=== PATIENT | female | born 1930 | race Caucasian/White ===

== ENCOUNTER 2017-11-21 00:48 | Inpatient (IN) | payer OTHER ==
[2017-11-21] MEDS ORDERED: IPRATROPIUM BROM 0.5MG/2.5ML ONE (01:35)
[2017-11-21] MEDS ORDERED: FUROSEMIDE 40 MG/4 ML VIAL ONE (01:35)
[2017-11-21] MEDS ORDERED: ALBUTEROL 2.5 MG/3 ML NEB SOL ONE (01:35)
[2017-11-21 01:43] LABS: Arterial Blood Carboxyhemoglob 1.4 % (0-1.5); Blood Gas Oxyhemoglobin 94.7 % (94-97); Blood O2 Saturation 96.3 % (92-98.5)
[2017-11-21 02:20] LABS: Absolute Lymphocytes (CBC) 1.2 K/uL (0.7-4.9); Absolute Monocytes 0.8 K/uL (0.1-1.3); Absolute Neutrophil 5.1 K/uL (1.8-8.0); Basophils % 1.3 % (0-1.3); Eosinophils % 6.7 % (0-4.4); Hematocrit 38.3 % (36.0-45.0); Lymphocytes % 15.7 % (15.3-44.8); MCH 26.5 pg (27.0-35.0); MCV 84.1 fL (80-100); MPV 10.6 fL (7.6-11.3); Monocytes % 9.9 % (3.3-12.3); RBC Red Blood Cell Count 4.55 M/uL (3.86-4.86)
[2017-11-21 02:25] LABS: Protime INR 1.18
[2017-11-21 02:44] LABS: CKMB Creatine Kinase MB 3.9 ng/ml (0.3-4.0); Potassium 4.7 mEq/L (3.6-5.0)
[2017-11-21 02:51] LABS: Bilirubin Direct 0.4 mg/dL (0-0.2); Bilirubin Total 0.9 mg/dL (0.3-1.2); Magnesium 2.1 mg/dL (1.8-2.5); Protein, Total 7.9 g/dL (6.0-8.3)
--- NOTE | 2017-11-21 03:12 | EDPHYS ---
Physician Documentation [facility] Name: Anastacia Zarate Age: 87 yrs Sex: Female : 1930 Arrival Date: 11/21/2017 Time: 00:49 Bed 3 Private MD: ED Physician Doe Thompson HPI: 11/21 01:30 This 87 yrs old Female presents to ER via Wheelchair with complaints of pkl Shortness Of Breath. 01:30 The patient has shortness of breath at rest. Onset: The symptoms/episode began/occurred pkl today. Associated signs and symptoms: Pertinent positives: pedal edema. The patient has experienced similar episodes in the past, a few times. Historical: - Allergies: 01:10 Talwin; ea - Home Meds: 01:10 furosemide 20 mg Oral tab 1 tab once daily [Active]; Premarin 1.25 mg Oral tab 1 tab ea once daily [Active]; Synthroid 100 mcg Oral tab 1 tab once daily [Active]; Toprol XL 50 mg Oral Tb24 1 tab once daily [Active]; - PMHx: 01:10 Hypertension; lymphedema; Migraines; ea - PSHx: 01:10 ; Appendectomy; Hysterectomy; Tonsillectomy; cyst and tumor removal from LORRAINE ea breast; LORRAINE masectomy; - Immunization history:: Adult Immunizations up to date. - Social history:: Smoking status: Patient/guardian denies using tobacco. ROS: 01:30 Eyes: Negative for injury, pain, redness, and discharge, ENT: Negative for injury, pkl pain, and discharge, Neck: Negative for injury, pain, and swelling, Cardiovascular: Negative for chest pain, palpitations, and edema. 01:30 Respiratory: Positive for shortness of breath. 01:30 Abdomen/GI: Negative for abdominal pain, nausea, vomiting, and diarrhea. 01:30 Back: Negative for acute changes. 01:30 : Negative for urinary symptoms. 01:30 MS/extremity: Positive for swelling, of the both legs. 01:30 Skin: Negative for rash. 01:30 Neuro: Negative for altered mental status. Exam: 01:30 Head/Face: Normocephalic, atraumatic. Eyes: Pupils equal round and reactive to light, pkl extra-ocular motions intact. Lids and lashes normal. Conjunctiva and sclera are non-icteric and not injected. Cornea within normal limits. Periorbital areas with no swelling, redness, or edema. ENT: Nares patent. No nasal discharge, no septal abnormalities noted. Tympanic membranes are normal and external auditory canals are clear. Oropharynx with no redness, swelling, or masses, exudates, or evidence of obstruction, uvula midline. Mucous membranes moist. Neck: Trachea midline, no thyromegaly or masses palpated, and no cervical lymphadenopathy. Supple, full range of motion without nuchal rigidity, or vertebral point tenderness. No Meningismus. Chest/axilla: Normal chest wall appearance and motion. Nontender with no deformity. No lesions are appreciated. Cardiovascular: Regular rate and rhythm with a normal S1 and S2. No gallops, murmurs, or rubs. Normal PMI, no JVD. No pulse deficits. 01:30 Respiratory: mild respiratory distress is noted, Respirations: labored breathing, that is mild, Breath sounds: rales, that are mild, are scattered. 01:30 Abdomen/GI: Bowel sounds: normal, Palpation: abdomen is soft and non-tender, in all pkl quadrants. 01:30 Back: Exam negative for acute changes. 01:30 : Exam negative for acute changes. 01:30 Musculoskeletal/extremity: Extremities: grossly normal except: noted in the both legs: swelling. 01:30 Skin: Exam negative for rash. 01:30 Neuro: Orientation: appropriate for stated age, Mentation: is normal, Cranial nerves: grossly normal, Motor: is normal. Vital Signs: 00:58 BP 158 / 91; Pulse 129; Resp 26; Temp 97.1(A); Pulse Ox 89% on R/A; Weight 45.36 kg; ea Height 5 ft. 2 in. (157.48 cm); Pain 0/10; 01:33 BP 169 / 103; Pulse 89; Resp 24; Pulse Ox 97% on 2 lpm NC; aa1 04:06 BP 175 / 93; Pulse 91; Resp 22 S; Pulse Ox 100% on 2 lpm NC; ea 04:22 BP 168 / 86; Pulse 90; Resp 20; Temp 97.6(O); Pulse Ox 100% on 2 lpm NC; ea 00:58 Body Mass Index 18.29 (45.36 kg, 157.48 cm) ea 00:58 pt placed on O2 at 2 L per NC, pt tolerated well, O2 at 96% RA ea MDM: 01:07 Patient medically screened. pkl 03:09 Data reviewed: vital signs, nurses notes, lab test result(s), EKG, radiologic studies, pkl plain films. 11/21 01:28 Order name: Basic Metabolic Panel pkl 11/21 01:28 Order name: BNP pkl 11/21 01:28 Order name: CBC with Diff pk 11/21 01:28 Order name: Ckmb pk 11/21 01:28 Order name: CPK pk 11/21 01:28 Order name: LFT's pk 11/21 01:28 Order name: Magnesium pk 11/21 01:28 Order name: PT-INR pk 11/21 01:28 Order name: Ptt, Activated; Complete Time: 02:40 pkl 11/21 01:28 Order name: Troponin (emerg Dept Use Only); Complete Time: 02:47 pkl 11/21 01:29 Order name: Basic Metabolic Panel; Complete Time: 02:51 EDMS 11/21 01:29 Order name: BNP B-Type Natriuretic Peptide; Complete Time: 02:47 EDMS 11/21 01:29 Order name: CBC with Automated Diff; Complete Time: 02:26 EDMS 11/21 01:29 Order name: CKMB Creatine Kinase MB; Complete Time: 02:51 EDMS 11/21 01:28 Order name: XRAY Chest (1 view) pk 11/21 01:28 Order name: EKG; Complete Time: 01:29 pkl 11/21 01:28 Order name: Cardiac monitoring; Complete Time: 01:33 pkl 11/21 01:28 Order name: EKG - Nurse/Tech; Complete Time: 01:33 pkl 11/21 01:28 Order name: IV Saline Lock; Complete Time: 01:33 pkl 11/21 01:28 Order name: Labs collected and sent; Complete Time: 02:01 pkl 11/21 01:28 Order name: O2 Per Protocol; Complete Time: 01:33 pkl 11/21 01:29 Order name: Creatine Phosphokinase; Complete Time: 02:51 EDMS 11/21 01:29 Order name: Liver (Hepatic) Function; Complete Time: 02:51 EDMS 11/21 01:29 Order name: Magnesium; Complete Time: 02:51 EDMS 11/21 01:29 Order name: Protime (+INR); Complete Time: 02:40 EDMS 11/21 01:29 Order name: ABG; Complete Time: 01:59 pkl 11/21 01:28 Order name: O2 Sat Monitoring; Complete Time: 01:32 pkl Administered Medications: 01:45 Drug: Lasix 40 mg Route: IVP; Site: right forearm; aa1 02:30 Follow up: Response: No adverse reaction ea 01:45 Drug: Albuterol - atroVENT (3:1) (2.5 mg - 0.5 mg) 3 ml Route: Nebulizer; aa1 02:21 Follow up: Response: No adverse reaction ea 02:21 Follow up: Response: Marked relief of symptoms ea 04:01 CANCELLED (Inappropriate at this time): SOLU-Medrol 125 mg IVP once ea 04:01 CANCELLED (Inappropriate at this time): fentaNYL (PF) 50 mcg IVP once ea Disposition: 11/21/17 03:10 Hospitalization ordered by Yossi Deng for Inpatient Admission. Preliminary diagnosis is Acute dyspnea. Congestive heart failure. - Bed requested for Telemetry/MedSurg (Inpatient). - Status is Inpatient Admission. ea - Condition is Stable. - Problem is new. - Symptoms have improved. UTI on Admission? No Signatures: Dispatcher [employer] Joann Strickland RN RN aa1 Doe Thompson MD MD pkl Garcia, Cindy, RN RN cg Antunez, Elena, RN RN ea Corrections: (The following items were deleted from the chart) 04: 04:00 SOLU-Medrol 125 mg IVP once ordered. ea ea 04: 04:00 fentaNYL (PF) 50 mcg IVP once ordered. ea ea
--- NOTE | 2017-11-21 03:12 | ER ---
Nurse's Notes [facility] Name: Anastacia Zarate Age: 87 yrs Sex: Female : 1930 Arrival Date: 11/21/2017 Time: 00:49 Bed 3 Private MD: Diagnosis: Acute dyspnea. Congestive heart failure Presentation: 11/21 00:58 Presenting complaint: Daughter states mother started having difficulty breathing ea tonight but got worse about 30 minutes ago, daughter states " she has been hospitalized for this before, she has fluid build up and then it causes her difficulty breathing". Transition of care: patient was not received from another setting of care. Onset of symptoms was November 21, 2017. Initial Sepsis Screen: Does the patient meet any 2 criteria? RR > 20 per min. HR > 90 bpm. Yes Does the patient have a suspected source of infection? No. Patient's initial sepsis screen is negative. Care prior to arrival: None. 00:58 Method Of Arrival: Wheelchair ea 00:58 Acuity: YAMILEX 3 ea Triage Assessment: 00:58 General: Appears uncomfortable, Behavior is appropriate for age, restless. Pain: Denies ea pain. EENT: No signs and/or symptoms were reported regarding the EENT system. Neuro: Level of Consciousness is awake, alert, obeys commands, Oriented to person, place, time, situation. Cardiovascular: Heart tones S1 S2 present Patient's skin is warm and dry. Cardiovascular: JVD is present bilaterally. Respiratory: Reports shortness of breath since this morning Airway is patent Respiratory effort is even, labored, Respiratory pattern is symmetrical, tachypnea Breath sounds with crackles bilaterally. Onset: The symptoms/episode began/occurred today, the patient has mild shortness of breath. GI: Abdomen is non-distended. GI:. Derm: Skin temperature is warm lorraine lower extremity 3+ pitting edema. Historical: - Allergies: 01:10 Talwin; ea - Home Meds: 01:10 furosemide 20 mg Oral tab 1 tab once daily [Active]; Premarin 1.25 mg Oral tab 1 tab ea once daily [Active]; Synthroid 100 mcg Oral tab 1 tab once daily [Active]; Toprol XL 50 mg Oral Tb24 1 tab once daily [Active]; - PMHx: 01:10 Hypertension; lymphedema; Migraines; ea - PSHx: 01:10 ; Appendectomy; Hysterectomy; Tonsillectomy; cyst and tumor removal from LORRAINE ea breast; LORRAINE masectomy; - Immunization history:: Adult Immunizations up to date. - Social history:: Smoking status: Patient/guardian denies using tobacco. Screenin:16 Abuse screen: Denies threats or abuse. Nutritional screening: No deficits noted. ea Tuberculosis screening: No symptoms or risk factors identified. Fall Risk IV access (20 points). Assessment: 01:18 Reassessment: see triage assessment. ea 02:08 Reassessment: Patient and/or family updated on plan of care and expected duration. Pain ea level reassessed. RT at bedside. Pt placed on breathing treatment, tolerating well. 03:55 Reassessment: Patient and/or family updated on plan of care and expected duration. Pain ea level reassessed. Daughter remains at bedside, respirations even and unlabored, chest expansions even and symmetrical. Pt on O2 at 2 L per NC. Pt tolerating well. Patient states symptoms have improved. 04:15 Reassessment: Report called to receiving nurse. Reassessment: Patient and/or family ea updated on plan of care and expected duration. Pain level reassessed. Patient is alert, oriented x 3, equal unlabored respirations, skin warm/dry/pink. Patient states symptoms have improved. Vital Signs: 00:58 BP 158 / 91; Pulse 129; Resp 26; Temp 97.1(A); Pulse Ox 89% on R/A; Weight 45.36 kg; ea Height 5 ft. 2 in. (157.48 cm); Pain 0/10; 01:33 BP 169 / 103; Pulse 89; Resp 24; Pulse Ox 97% on 2 lpm NC; aa1 04:06 BP 175 / 93; Pulse 91; Resp 22 S; Pulse Ox 100% on 2 lpm NC; ea 04:22 BP 168 / 86; Pulse 90; Resp 20; Temp 97.6(O); Pulse Ox 100% on 2 lpm NC; ea 00:58 Body Mass Index 18.29 (45.36 kg, 157.48 cm) ea 00:58 pt placed on O2 at 2 L per NC, pt tolerated well, O2 at 96% RA ea ED Course: 00:49 Patient arrived in ED. ds1 00:58 Patient has correct armband on for positive identification. Bed in low position. Call ea light in reach. Side rails up X2. 01:00 Arm band placed on left wrist. Patient placed in an exam room, on a stretcher, on ea oxygen, on lunchroom monitor, on pulse oximetry. 01:02 Arin John RN is Primary Nurse. ea 01:07 Doe Thompson MD is Attending Physician. pkl 01:09 Triage completed. ea 01:19 EKG done, by ED staff, reviewed by Doe Thompson MD. Inserted saline lock: 22 gauge in right aa1 forearm, using aseptic technique. 01:55 X-ray completed. Portable x-ray completed in exam room. Patient tolerated procedure kw well. 01:56 XRAY Chest (1 view) In Process Unspecified. EDMS 03:10 Yossi Deng MD is Hospitalizing Provider. pkl 03:29 No provider procedures requiring assistance completed. ea 04:25 IV discontinued, intact, bleeding controlled, No redness/swelling at site. Pressure ea dressing applied. Administered Medications: 01:45 Drug: Lasix 40 mg Route: IVP; Site: right forearm; aa1 02:30 Follow up: Response: No adverse reaction ea 01:45 Drug: Albuterol - atroVENT (3:1) (2.5 mg - 0.5 mg) 3 ml Route: Nebulizer; aa1 02:21 Follow up: Response: No adverse reaction ea 02:21 Follow up: Response: Marked relief of symptoms ea 04:01 CANCELLED (Inappropriate at this time): SOLU-Medrol 125 mg IVP once ea 04:01 CANCELLED (Inappropriate at this time): fentaNYL (PF) 50 mcg IVP once ea Outcome: 03:10 Decision to Hospitalize by Provider. pkl 04:18 Instructed on the need for admit. ea 04:25 Admitted to Med/surg accompanied by tech, via stretcher, room 424, with chart, Report ea called to Receiving nurse on fourth floor. 04:25 Condition: stable 04:26 Patient left the ED. ea Signatures: Dispatcher [employer] EDMS Joann Pisano, RN RN aa1 Doe Thompson MD MD pkSilvana Coombs 1 Hayley Lim kw Arin John RN RN ea
[2017-11-21] MEDS ORDERED: ACETAMINOPHEN 500 MG TAB PO PRN (03:20)
[2017-11-21] MEDS ORDERED: IPRATROPIUM BROM 0.5MG/2.5ML NEB PRN (03:20)
[2017-11-21] MEDS ORDERED: ALBUTEROL 2.5 MG/3 ML NEB SOL NEB PRN (03:20)
[2017-11-21] MEDS ORDERED: ONDANSETRON 4 MG/2 ML VIAL IV PRN (03:20)
--- NOTE | 2017-11-21 06:17 | RAD REPORT ---
EXAM DESCRIPTION: RAD - Chest Single View - 11/21/2017 1:56 am CLINICAL HISTORY: Difficulty breathing, lymphedema COMPARISON: September 16 TECHNIQUE: AP portable chest image was obtained 0148 hours . FINDINGS: Lung volumes are low. Chronic interstitial lung disease is accentuated by the shallow insp iration. Right pleural effusion is present increased slightly from the comparison. Minimal left pleur al effusion is suspected. Bilateral lung base opacification is present right greater than left. This is primarily atelectasis and fibrosis. Patient likely has a component of interstitial edema or infilt rate. Heart size is normal. Trachea is midline. Densely calcified breast implant capsules overlie the lower chest and upper abdomen. No pneumothorax. No gross bony abnormality seen. No acute aortic find ings suspected. IMPRESSION: Interstitial edema or infiltrate superimposed on chronic fibrotic change. Slight increase in right lung base pleural effusion. No cardiomegaly or significant vascular engorgement.
[2017-11-21 06:36] VITALS: BMI 18.3
--- NOTE | 2017-11-21 06:53 | EKG ---
Test Date: 2017-11-21 Test Time: 01:08:58 Hr Operations Advisor: LANDY MEASUREMENT RESULTS: Intervals: Rate: 89 ND: QRSD: 70 QT: 356 QTc: 433 [place]: P: ND: QRS: 43 T: -1 INTERPRETIVE STATEMENTS: Atrial fibrillation Nonspecific ST and T wave abnormality Abnormal ECG Compared to ECG 09/16/2017 17:44:52 Ventricular premature complex(es) no longer present Electronically Signed On 11-21-17 06:53:21 CDT by Avelino Agustin
[2017-11-21] MEDS: FUROSEMIDE 20 MG/ 2ML VIAL IV SCH ×2 (08:23→18:22)
[2017-11-21] MEDS ORDERED: ENOXAPARIN 40 MG/0.4 ML SQ SCH (09:00)
[2017-11-21] MEDS: METOPROLOL XL 50 MG TAB PO SCH (09:47)
[2017-11-21] MEDS ORDERED: LISINOPRIL 10 MG TAB PO ONE (12:17)
--- NOTE | 2017-11-21 15:01 | ECHO ---
HEIGHT: 5 ft 2 in WEIGHT: 100 lb 0 oz DATE OF STUDY: 11/21/[address]: Yossi Deng MD 2-DIMENSIONAL: YES M.MODE: YES DOPPLER: YES COLOR FLOW: YES TDS: PORTABLE: DEFINITY: BUBBLE STUDY: DIAGNOSIS: CONGESTIVE HEART FAILURE CARDIAC HISTORY: CATHERIZATION: NO SURGERY: NO PROSTHETIC VALVE: NO PACEMAKER: NO MEASUREMENTS (cm) DIASTOLIC (NORMALS) SYSTOLIC (NORMALS) IVSd 0.9 (0.6-1.2) LA Diam 3.1 (1.9-4.0) LVEF 60-65% LVIDd 3.7 (3.5-5.7) LVIDs 2.8 (2.0-3.5) %FS % LVPWd 1.0 (0.6-1.2) Ao Diam 3.3 (2.0-3.7) 2 DIMENSIONAL ASSESSMENT: RIGHT ATRIUM: DILATED LEFT ATRIUM: NORMAL RIGHT VENTRICLE: DILATED LEFT VENTRICLE: NORMAL TRICUSPID VALVE: NORMAL MITRAL VALVE: NORMAL PULMONIC VALVE: NORMAL AORTIC VALVE: NORMAL PERICARDIAL EFFUSION: NONE AORTIC ROOT: NORMAL LEFT VENTRICULAR WALL MOTION: PARADOXICAL SEPTAL MOTION SUGGESTIVE OF RIGHT VENTRICULAR PRESSURE OVERLOAD. DOPPLER/COLOR FLOW: MILD AORTIC AND MITRAL REGURGITATION. MODERATE TRICUSPID REGURGITATION. SEVERE PULMONARY HYPERTENSION. ESTIMATED RIGHT VENTRICULAR SYSTOLIC PRESSURE >80 mmHg. COMMENTS: NORMAL LEFT VENTRICULAR EJECTION FRACTION WITH PARADOXICAL SEPTAL MOTION. DILATED RIGHT ATRIUM AND RIGHT VENTRICLE. MILD AORTIC AND MITRAL REGURGITATION. ATRIAL FIBRILLATION. MODERATE TRICUSPID REGURGITATION. SEVERE PULMONARY HYPERTENSION. RIGHT PLEURAL EFFUSION. TECHNOLOGIST: BONNIE PANDEY
[2017-11-21 16:55] LABS: Thyroid Stimulating Hormone 8.22 uIU/mL (0.34-5.60)
--- NOTE | 2017-11-21 23:35 | HP ---
Date of Admission: 11/21/2017 History Of Present Illness: An 87-year-old female with history of systolic congestive heart failure and atrial fibrillation came to emergency room complaining of increased shortness of breath gradually over the past week or so. She noticed also that her legs are getting swollen on both sides. She wa s found to have exacerbation of systolic congestive heart failure. She was admitted for that. The p atient had no chest pain, no nausea, or no vomiting. Voiced no other complaints. Review of Systems: Respiratory: As above. Cardiovascular: No chest pain. No palpitation. No other complaints. Gastrointestinal: No complaints. Genitourinary: No complaints. Skeletomuscular: Chronic osteoarthritis, multiple joints, for which the patient had difficulty in am bulation. Neurological: No complaint. Past Medical History: 1.Chronic atrial fibrillation. 2.Systolic congestive heart failure. 3.Hypothyroidism. 4.History of migraines, no recent episodes. 5.Chronic bilateral lymphedema. 6.The patient has had bilateral mastectomy, appendectomy, hysterectomy, and tonsillectomy. Social History: No smoking, alcohol, or drug abuse history. Family History: Noncontributory. Medications: Include potassium chloride 10 mEq p.o. daily, Demadex 20 mg p.o. daily, levothyroxine 0 .1 mg p.o. daily, metoprolol 50 mg p.o. daily, and Premarin 1.25 mg p.o. daily. Allergies: PENTAZOCINE. Physical Examination: Vital Signs: Blood pressure 185/94, pulse 99, and temperature 97.1. Heart: Irregular rate and rhythm. Chest: Mild bilateral crackles and rales. Abdomen: Soft, nontender. No hepatosplenomegaly. Bowel sounds are normoactive. Extremities: Chronic lymphedema bilateral with trace pitting edema bilateral also. Neurological: Alert, oriented, and nonfocal. Grossly intact. Diagnostic Studies: Chest x-ray showed interstitial edema with chronic fibrotic changes, mild right pleural effusion. Electrocardiogram, atrial fibrillation, nonspecific ST-T wave abnormality. Laboratory Data: CBC noted. ABGs on 2 L nasal prong, pH 7.4, pCO2 42.8, PO2 87.4, and saturation 96 .3. Chemistry: BUN 28, creatinine 0.95. Troponin less than 0.03. BNP was 2827. Assessment And Plan: Acute systolic congestive heart failure on top of chronic. The patient is bein g admitted. Put her on IV Lasix 20 mg IV b.i.d. Continue home medications. Monitor her electrolyte s and supplement as needed. The patient has been put also on breathing treatments. We will ask [facility] for discharge planning and also have put the patient on Lovenox 30 mg subcutaneous daily. The patient with chronic atrial fibrillation. She is not a candidate for chronic anticoagulation b ecause of her increased risk of falling and her compliance. Go ahead and check her TSH. We will ask [employer] as mentioned for discharge planning. Look orders for details. LOPEZ/MORTEZA Voice ID: [id number]
[2017-11-22] MEDS: LEVOTHYROXINE SOD 0.1 MG TAB PO SCH (05:09)
[2017-11-22 05:14] LABS: Absolute Lymphocytes (CBC) 0.7 K/uL (0.7-4.9); Absolute Monocytes 0.6 K/uL (0.1-1.3); Absolute Neutrophil 4.6 K/uL (1.8-8.0); Basophils % 0.9 % (0-1.3); Eosinophils % 4.4 % (0-4.4); MCH 26.1 pg (27.0-35.0); MCV 82.5 fL (80-100); MPV 10.1 fL (7.6-11.3); Monocytes % 9.6 % (3.3-12.3); RBC Red Blood Cell Count 3.88 M/uL (3.86-4.86)
[2017-11-22 05:49] LABS: Potassium 3.5 mEq/L (3.6-5.0)
[2017-11-22] MEDS: METOPROLOL XL 50 MG TAB PO SCH (08:55)
[2017-11-22] MEDS: ENOXAPARIN 30 MG/0.3 ML SQ SCH (08:56)
[2017-11-22] MEDS: FUROSEMIDE 20 MG/ 2ML VIAL IV SCH ×2 (08:57→16:10)
[2017-11-22] MEDS ORDERED: POTASSIUM CL SA 10 MEQ TAB PO ONE (09:00)
--- NOTE | 2017-11-22 16:18 | PN ---
Subjective: The patient is feeling better today. She is not short of breath. Has no new complaint. Objective: Vital Signs: Blood pressure 122/70, pulse 80, and temperature 97. Heart: Regular rate and rhythm. Chest: Clear to auscultation. Abdomen: Soft, benign. Neurologic: Alert, oriented. Grossly intact Extremities: No pitting edema. Diagnostic Data: Cardiac echo showed ejection fraction of left ventricle 60-65%. However, she had s evere pulmonary hypertension. Laboratory Data: Hemoglobin 10.1, hematocrit 32, and platelets 130. Chemistry; BNP got down to be 1 891. TSH is high at 8.32. Assessment And Plan: 1.Shortness of breath, resolved. I think it was also from severe pulmonary hypertension causing the patient's edema. We will continue IV Lasix 40 daily and we will switch her back to p.o. Lasix upon discharge. 2.We will increase her dose of thyroid hormone, levothyroxine because of her elevated TSH. 3.Form [employer] Forms note noted. The patient is refusing senior care. She would like to go ahead and arrange for her caregiver. At this time, we will expect to discharge the patient in the morning. H ad potassium today 3.5. She is on electrolyte protocol that will be supplemented. MFS/MODL Voice ID: [id number] Report ID: [id number]
[2017-11-22] MEDS: ENSURE ENLIVE 237 ML CAN PO SCH (20:20)
[2017-11-23 05:32] LABS: Potassium 3.2 mEq/L (3.6-5.0)
[2017-11-23] MEDS ORDERED: POTASSIUM CL SA 10 MEQ TAB PO ONE (05:55)
[2017-11-23] MEDS: LEVOTHYROXINE SOD 0.1 MG TAB PO SCH (06:04)
[2017-11-23] MEDS: FUROSEMIDE 20 MG/ 2ML VIAL IV SCH (09:37)
[2017-11-23] MEDS: METOPROLOL XL 50 MG TAB PO SCH (09:38)
[2017-11-23] MEDS: ENOXAPARIN 30 MG/0.3 ML SQ SCH (09:38)
[2017-11-23] MEDS: ENSURE ENLIVE 237 ML CAN PO SCH (09:39)
[2017-11-23 12:06] VITALS: O2SAT 95
[2017-11-23 12:08] VITALS: BP 141/63; TEMP 97.6
--- NOTE | 2018-03-01 15:52 | DS ---
Date of Discharge: 11/23/2017 History Of Present Illness: An 87-year-old female, who presented to the emergency room with acute sh ortness of breath and her evaluation was found. She has chronic systolic congestive heart failure wi th acute exacerbation and she was admitted for that. Past Medical History: As per admit note. Social History: As per admit note. Family History: As per admit note. Medications: As per admit note. Allergies: PER ADMIT NOTE. Physical Examination: As per admit note. Diagnostic Data: As per admit note. Hospital Course: The patient was admitted to the hospital. She was put on a low-salt diet and IV La six 20 mg b.i.d. We monitored her electrolytes, kept her on home medications for chronic medical ill nesses, and put her on Lovenox subcutaneous for prophylaxis of DVT. She also has chronic atrial fibr illation, but she was not on anticoagulation at home because of increased risk of falling. The patie nt gradually improved. Echocardiogram showed left ventricular ejection fraction of 60% to 65%. Her shortness of breath has resolved. I thought the patient's swelling and edema was secondary to severe pulmonary hypertension and was found by echo. We continued her Lasix p.o. We checked her TSH and w as elevated. We increased her levothyroxine medication. Credit Review Manager were consulted for discharg e planning. The patient refused detention placement at this time. We thought the patient is stab le to be discharged on oral Lasix. Continue home medications for chronic medical illnesses, and stay on low-salt diet. Follow up with me. Look discharge orders for details. LOPEZ/MORTEZA Voice ID: [id number] Report ID: [id number]
== END 2017-11-23 16:22 | DRG 293 ==
LOC: ER 00:48 → ERHOLD 03:10 → 4TH 03:50
PROVIDERS: ADMIT Internal Medicine; ATTEND Internal Medicine
DX: I50.23 Acute on chronic systolic (congestive) heart failure (principal); I27.20 Pulmonary hypertension, unspecified; I48.2 Chronic atrial fibrillation; E03.9 Hypothyroidism, unspecified; I89.0 Lymphedema, not elsewhere classified; Z90.13 Acquired absence of bilateral breasts and nipples; Z90.79 Acquired absence of other genital organ(s); Z90.49 Acquired absence of other specified parts of digestive tract; Z90.89 Acquired absence of other organs
CPT/HCPCS: 36415; 71045; 80048; 80076; 82550; 82553; 82805; 83735; 83880; 84132; 84439; 84443; 84484; 85025; 85610; 85730; 93005; 93306; 94640; 96374; 97163; 99285; J1650; J1940

== ENCOUNTER 2018-02-12 10:44 | Emergency (ER) | payer OTHER ==
--- NOTE | 2018-02-12 11:45 | RAD REPORT ---
EXAM DESCRIPTION: RAD - Tib Fib Right - 02/12/2018 11:36 am CLINICAL HISTORY: Leg pain and soft tissue swelling following trauma COMPARISON: None. FINDINGS: No fracture is identified. There is no dislocation or periosteal reaction noted. No acute or suspicious bony finding. Arterial calcifications are present. Contusion or hematoma changes are present in the distal lateral soft tissues. No air or foreign body. Patient has underlying osteopenia. IMPRESSION: Small hematoma or contusion changes in the distal lateral right leg. No air or foreign b aguilar. Osteopenia with no fracture or acute bone finding.
--- NOTE | 2018-02-12 11:48 | EDPHYS ---
Physician Documentation [facility] Name: Anastacia Zarate Age: 87 yrs Sex: Female : 1930 Arrival Date: 02/12/2018 Time: 10:48 Bed 20 Private MD: ED Physician James Graham HPI: 02/12 10:55 This 87 yrs old Female presents to ER via EMS with complaints of Fall Injury. snw 10:55 Details of fall: The patient fell from an upright position, while standing. Onset: The snw symptoms/episode began/occurred suddenly, just prior to arrival. Associated injuries: The patient sustained right easley, hematoma, painful injury, swelling. Severity of symptoms: At their worst the symptoms were moderate. The patient has not experienced similar symptoms in the past. The patient has been recently seen by a physician: recently seen for bilateral lower extremity edema. Pt states she is taking some medication "they won't tell me what it is" at night that makes her dizzy. Pt states she has taken the medication for the past two nights and knows it is making her nauseated and dizzy. States she got up today to go to the bathroom and fell striking right easley on her walker. Historical: - Allergies: 10:50 Talwin; aa5 10:50 Talwin; aa5 - Home Meds: 10:50 latanoprost ophthalmic ophthalmic [Active]; levothyroxine 125 mcg tab once daily aa5 [Active]; loratadine 10 mg oral tab 1 tab once daily [Active]; metoprolol succinate 50 mg oral Tb24 once daily [Active]; mirtazapine 15 mg Oral TbDL 1 tab once daily [Active]; Oxygen at 2 L NC [Active]; potassium chloride 20 mEq Oral TbTQ 2 times per day [Active]; Premarin 1.25 mg Oral tab once daily [Active]; torsemide 20 mg oral tab twice a day [Active]; loperamide 2 mg Oral tab four times a day for Diarrhea [Active]; - PMHx: 10:50 Hypertension; lymphedema; Migraines; CHF; Atrial Fib; Hypothyroidism; aa5 10:50 Hypertension; lymphedema; Migraines; Hypothyroidism; Atrial Fib; CHF; Breast Cancer; aa5 - PSHx: 10:50 ; Appendectomy; Hysterectomy; Tonsillectomy; cyst and tumor removal from LORRAINE aa5 breast; 10:50 ; Appendectomy; Hysterectomy; Tonsillectomy; cyst and tumor removal from LORRAINE aa5 breast; LORRAINE masectomy; - Immunization history:: Adult Immunizations up to date. - Social history:: Smoking status: Patient/guardian denies using tobacco. - Immunization history: Last tetanus immunization: unknown. - Ebola Screening: : No symptoms or risks identified at this time. ROS: 10:54 Constitutional: Negative for fever, chills, and weight loss, Eyes: Negative for injury, snw pain, redness, and discharge, ENT: Negative for injury, pain, and discharge, Neck: Negative for injury, pain, and swelling, Cardiovascular: Negative for chest pain, palpitations, and edema, Respiratory: Negative for shortness of breath, cough, wheezing, and pleuritic chest pain, Abdomen/GI: Negative for abdominal pain, nausea, vomiting, diarrhea, and constipation, Back: Negative for injury and pain, : Negative for injury, bleeding, discharge, and swelling, Skin: Negative for injury, rash, and discoloration, Neuro: Negative for headache, weakness, numbness, tingling, and seizure, Psych: Negative for depression, anxiety, suicide ideation, homicidal ideation, and hallucinations. 10:54 MS/extremity: Positive for injury or acute deformity, swelling, tenderness, of the right easley. Exam: 10:53 Constitutional: This is a well developed, well nourished patient who is awake, alert, snw and in no acute distress. Head/Face: Normocephalic, atraumatic. Eyes: Pupils equal round and reactive to light, extra-ocular motions intact. Lids and lashes normal. Conjunctiva and sclera are non-icteric and not injected. Cornea within normal limits. Periorbital areas with no swelling, redness, or edema. ENT: Nares patent. No nasal discharge, no septal abnormalities noted. Tympanic membranes are normal and external auditory canals are clear. Oropharynx with no redness, swelling, or masses, exudates, or evidence of obstruction, uvula midline. Mucous membranes moist. Neck: Trachea midline, no thyromegaly or masses palpated, and no cervical lymphadenopathy. Supple, full range of motion without nuchal rigidity, or vertebral point tenderness. No Meningismus. Chest/axilla: Normal chest wall appearance and motion. Nontender with no deformity. No lesions are appreciated. Cardiovascular: Regular rate and rhythm with a normal S1 and S2. No gallops, murmurs, or rubs. Normal PMI, no JVD. No pulse deficits. Respiratory: Lungs have equal breath sounds bilaterally, clear to auscultation and percussion. No rales, rhonchi or wheezes noted. No increased work of breathing, no retractions or nasal flaring. Abdomen/GI: Soft, non-tender, with normal bowel sounds. No distension or tympany. No guarding or rebound. No evidence of tenderness throughout. Back: No spinal tenderness. No costovertebral tenderness. Full range of motion. Skin: Warm, dry with normal turgor. Normal color with no rashes, no lesions, and no evidence of cellulitis. Neuro: Awake and alert, GCS 15, oriented to person, place, time, and situation. Cranial nerves II-XII grossly intact. Motor strength 5/5 in all extremities. Sensory grossly intact. Cerebellar exam normal. Normal gait. Psych: Awake, alert, with orientation to person, place and time. Behavior, mood, and affect are within normal limits. 10:53 Musculoskeletal/extremity: Extremities: grossly normal except: contusion, tenderness, large hematoma to right lower extremity, ROM: no acute changes, Circulation is intact in all extremities. Sensation intact. Vital Signs: 10:50 BP 124 / 64; Pulse 66; Resp 16 S; Temp 97.6(O); Pulse Ox 100% on R/A; Weight 40.37 kg aa5 (R); Pain 8/10; 11:45 BP 144 / 57; Pulse 70; Resp 16 S; Pulse Ox 98% on 2 lpm NC; Pain 5/10; aa5 12:45 BP 142 / 70; Pulse 74; Resp 16 S; Pulse Ox 99% on 2 lpm NC; Pain 5/10; aa5 Tammy Coma Score: 10:50 Eye Response: spontaneous(4). Verbal Response: oriented(5). Motor Response: obeys aa5 commands(6). Total: 15. 11:45 Eye Response: spontaneous(4). Verbal Response: oriented(5). Motor Response: obeys aa5 commands(6). Total: 15. 12:45 Eye Response: spontaneous(4). Verbal Response: oriented(5). Motor Response: obeys aa5 commands(6). Total: 15. Trauma Score (Adult): 10:50 Eye Response: spontaneous(1); Verbal Response: oriented(1); Motor Response: obeys aa5 commands(2); Systolic BP: > 89 mm Hg(4); Respiratory Rate: 10 to 29 per min(4); Tammy Score: 15; Trauma Score: 12 11:45 Eye Response: spontaneous(1); Verbal Response: oriented(1); Motor Response: obeys aa5 commands(2); Systolic BP: > 89 mm Hg(4); Respiratory Rate: 10 to 29 per min(4); [place] Score: 15; Trauma Score: 12 12:45 Eye Response: spontaneous(1); Verbal Response: oriented(1); Motor Response: obeys aa5 commands(2); Systolic BP: > 89 mm Hg(4); Respiratory Rate: 10 to 29 per min(4); Tammy Score: 15; Trauma Score: 12 MDM: 10:58 Patient medically screened. snw 11:49 Data reviewed: vital signs, nurses notes. Data interpreted: Pulse oximetry: on room air snw is 100 %. Interpretation: normal. Counseling: I had a detailed discussion with the patient and/or guardian regarding: the historical points, exam findings, and any diagnostic results supporting the discharge/admit diagnosis, radiology results, the need for outpatient follow up, to return to the emergency department if symptoms worsen or persist or if there are any questions or concerns that arise at home. Special discussion: Based on the history and exam findings, there is no indication for further emergent testing or inpatient evaluation. I discussed with the patient/guardian the need to see the primary care provider for further evaluation of the symptoms. 13:28 Response to treatment: the patient's symptoms have markedly improved after treatment. snw ED course: GCS on arrival 15 and upon discharge 15. 02/12 10:53 Order name: Tib Fib Right XRAY; Complete Time: 11:46 snw 02/12 11:47 Order name: Misc. Order: simeon to hematoma; Complete Time: 12:22 snw Administered Medications: No medications were administered Disposition: 02/12/18 11:48 Discharged to Home. Impression: Fall on same level from slipping, tripping and stumbling with subsequent striking against furniture, Hematoma to right lower lateral leg. - Condition is Stable. - Discharge Instructions: Elastic Bandage and RICE, Hematoma, Fall Prevention and Home Safety. - Medication Reconciliation Form, Thank You Letter, Antibiotic Education, Prescription Opioid Use form. - Follow up: Private Physician; When: 48 Hours; Reason: Recheck today's complaints, Continuance of care, Re-evaluation by your physician. Follow up: Emergency Department; When: As needed; Reason: Worsening of condition. Addendum: 02/14/2018 06:19 Co-signature as Attending Physician, James Graham MD. g s Signatures: Dispatcher [employer] EDMS Siomara Jewell, AUTOMATIC SPINNING LATHE SETTER-C AUTOMATIC SPINNING LATHE SETTER-Csnw Mckayla Voss RN RN aa5 James Graham MD MD Corrections: (The following items were deleted from the chart) 02/12 13:29 11:48 02/12/2018 11:48 Discharged to Home. Impression: Fall on same level from aa5 slipping, tripping and stumbling with subsequent striking against furniture; Hematoma to right lower lateral leg. Condition is Stable. Forms are Medication Reconciliation Form, Thank You Letter, Antibiotic Education, Prescription Opioid Use. Follow up: Private Physician; When: 48 Hours; Reason: Recheck today's complaints, Continuance of care, Re-evaluation by your physician. Follow up: Emergency Department; When: As needed; Reason: Worsening of condition. snw
--- NOTE | 2018-02-12 11:48 | ER ---
Nurse's Notes [facility] Name: Anastacia Zarate Age: 87 yrs Sex: Female : 1930 Arrival Date: 02/12/2018 Time: 10:48 Bed 20 Private MD: Diagnosis: Fall on same level from slipping, tripping and stumbling with subsequent striking against furniture;Hematoma to right lower lateral leg Presentation: 02/12 10:48 Presenting complaint: Patient states: "I slid off the bed". Pt reports hitting right aa5 pentecostal on a wooden chest, denies LOC. Pt c/o right leg pain. Hematoma noted to right leg. Transition of care: patient was received from another setting of care (long-term care facility), [facility]. Onset of symptoms was February 12, 2018. Risk Assessment: Do you want to hurt yourself or someone else? Patient reports no desire to harm self or others. Initial Sepsis Screen: Does the patient meet any 2 criteria? No. Patient's initial sepsis screen is negative. Does the patient have a suspected source of infection? No. Patient's initial sepsis screen is negative. Care prior to arrival: None. 10:48 Method Of Arrival: EMS: [facility] aa5 10:48 Acuity: YAMILEX 3 aa5 10:48 Mechanism of Injury: Fall out of bed. aa5 10:48 Trauma event details: Injury occurred in the [facility], Injury occurred: [address] [place] [address] Injury occurred: February 12, 2018. Trauma Activation: Not Applicable Physician: ED Physician; Name: ; Notified At: ; Arrived At: Physician: General Surgeon; Name: ; Notified At: ; Arrived At: Physician: Radiology; Name: ; Notified At: ; Arrived At: Physician: Respiratory; Name: ; Notified At: ; Arrived At: Physician: Lab; Name: ; Notified At: ; Arrived At: Historical: - Allergies: 10:50 Brooke; aa5 10:50 Scarwin; aa5 - Home Meds: 10:50 latanoprost ophthalmic ophthalmic [Active]; levothyroxine 125 mcg tab once daily aa5 [Active]; loratadine 10 mg oral tab 1 tab once daily [Active]; metoprolol succinate 50 mg oral Tb24 once daily [Active]; mirtazapine 15 mg Oral TbDL 1 tab once daily [Active]; Oxygen at 2 L NC [Active]; potassium chloride 20 mEq Oral TbTQ 2 times per day [Active]; Premarin 1.25 mg Oral tab once daily [Active]; torsemide 20 mg oral tab twice a day [Active]; loperamide 2 mg Oral tab four times a day for Diarrhea [Active]; - PMHx: 10:50 Hypertension; lymphedema; Migraines; CHF; Atrial Fib; Hypothyroidism; aa5 10:50 Hypertension; lymphedema; Migraines; Hypothyroidism; Atrial Fib; CHF; Breast Cancer; aa5 - PSHx: 10:50 ; Appendectomy; Hysterectomy; Tonsillectomy; cyst and tumor removal from [place] aa5 breast; 10:50 ; Appendectomy; Hysterectomy; Tonsillectomy; cyst and tumor removal from L[place]RAINE aa5 breast; LORRAINE masectomy; - Immunization history:: Adult Immunizations up to date. - Social history:: Smoking status: Patient/guardian denies using tobacco. - Immunization history: Last tetanus immunization: unknown. - Ebola Screening: : No symptoms or risks identified at this time. Screenin:55 Abuse screen: Denies threats or abuse. Nutritional screening: No deficits noted. aa5 Tuberculosis screening: No symptoms or risk factors identified. Fall Risk Fall in past 12 months (25 points). Total Landis Fall Scale indicates Low Risk Score (25-44 pts). Fall prevention measures have been instituted. Side Rails Up X 2 Placed close to Nursing Station. Primary Survey: 10:50 A: Airway: patent. Breathing/Chest: Respiratory effort: spontaneous, unlabored, Chest aa5 inspection: symmetrical rise and fall of the chest. Circulation: Skin color: pink. Disability Alert. 11:09 Reassessment Airway Airway Patent Breathing/Chest Respiratory pattern Regular aa5 Respiratory effort Spontaneous Unlabored Chest inspection Symmetrical Circulation Color [place] Disability Alert. Secondary Survey: 10:50 HEENT: No deficits noted. Gastrointestinal: No deficits noted. : No deficits noted. aa5 Musculoskeletal: Hematoma noted to right lower leg. Assessment: 10:50 General: Appears comfortable, Behavior is calm, cooperative. Pain: Complains of pain in aa5 right lower leg Pain does not radiate. Pain currently is 8 out of 10 on a pain scale. Quality of pain is described as aching, tender, Pain began just PUBLISHING SYSTEMS ANALYST, post fall Is continuous, Aggravated by touch. Neuro: Level of Consciousness is awake, alert, obeys commands, Oriented to person, place, time, situation. EENT: No signs and/or symptoms were reported regarding the EENT system. Cardiovascular: Heart tones S1 S2 present Rhythm is regular. Respiratory: Airway is patent Respiratory effort is even, unlabored, Respiratory pattern is regular, symmetrical, crackles auscultated upon inspiration bilaterally. GI: Abdomen is flat, non-distended, Bowel sounds present X 4 quads. Abd is soft and non tender X 4 quads. : No signs and/or symptoms were reported regarding the genitourinary system. Derm: Skin is pink, warm \\T\\ dry. Musculoskeletal: Range of motion: intact in all extremities, Abrasion noted to right knee, no active bleeding noted. Hematoma noted to right lower leg. 11:45 Reassessment: Patient and/or family updated on plan of care and expected duration. Pain aa5 level reassessed. Patient is alert, oriented x 3, equal unlabored respirations, skin warm/dry/pink. Pain: Pain currently is 5 out of 10 on a pain scale. 12:30 Reassessment: Patient is alert, oriented x 3, equal unlabored respirations, skin aa5 warm/dry/pink. Report was given to nurse at [facility], nurse states they will sent transportation to go back to [facility]. . Vital Signs: 10:50 BP 124 / 64; Pulse 66; Resp 16 S; Temp 97.6(O); Pulse Ox 100% on R/A; Weight 40.37 kg aa5 (R); Pain 8/10; 11:45 BP 144 / 57; Pulse 70; Resp 16 S; Pulse Ox 98% on 2 lpm NC; Pain 5/10; aa5 12:45 BP 142 / 70; Pulse 74; Resp 16 S; Pulse Ox 99% on 2 lpm NC; Pain 5/10; aa5 [place] Coma Score: 10:50 Eye Response: spontaneous(4). Verbal Response: oriented(5). Motor Response: obeys aa5 commands(6). Total: 15. 11:45 Eye Response: spontaneous(4). Verbal Response: oriented(5). Motor Response: obeys aa5 commands(6). Total: 15. 12:45 Eye Response: spontaneous(4). Verbal Response: oriented(5). Motor Response: obeys aa5 commands(6). Total: 15. Trauma Score (Adult): 10:50 Eye Response: spontaneous(1); Verbal Response: oriented(1); Motor Response: obeys aa5 commands(2); Systolic BP: > 89 mm Hg(4); Respiratory Rate: 10 to 29 per min(4); [place] Score: 15; Trauma Score: 12 11:45 Eye Response: spontaneous(1); Verbal Response: oriented(1); Motor Response: obeys aa5 commands(2); Systolic BP: > 89 mm Hg(4); Respiratory Rate: 10 to 29 per min(4); [place] Score: 15; Trauma Score: 12 12:45 Eye Response: spontaneous(1); Verbal Response: oriented(1); Motor Response: obeys aa5 commands(2); Systolic BP: > 89 mm Hg(4); Respiratory Rate: 10 to 29 per min(4); [place] Score: 15; Trauma Score: 12 ED Course: 10:48 Patient arrived in ED. aa5 10:50 Triage completed. aa5 10:50 Arm band placed on Patient placed in an exam room, on a stretcher. aa5 10:50 Patient has correct armband on for positive identification. Placed in gown. Bed in low aa5 position. Call light in reach. Side rails up X2. 10:50 Pulse ox on. NIBP on. aa5 10:50 Patient maintains SpO2 saturation greater than 95% on room air. aa5 10:50 Thermoregulation: warm blanket given to patient. aa5 10:53 Siomara Jewell FNP-C is PHCP. snw 10:53 James Graham MD is Attending Physician. snw 10:59 Mckayla Voss, MERLY is Primary Nurse. aa5 11:35 X-ray completed. Portable x-ray completed in exam room. Patient tolerated procedure sw well. 11:36 Tib Fib Right XRAY In Process Unspecified. EDMS 12:19 Lio wrap to right ankle. mh5 13:20 No provider procedures requiring assistance completed. Patient did not have IV access aa5 during this emergency room visit. Administered Medications: No medications were administered Intake: 13:20 PO: 0ml; Total: 0ml. aa5 Outcome: 11:48 Discharge ordered by MD. [place] 11:48 Patient's length of stay was not longer than 2 hours. aa5 13:20 Discharged to [facility] with [facility] transportation aa5 13:20 Condition: stable 13:20 Discharge instructions given to patient, Instructed on discharge instructions, follow up and referral plans. Demonstrated understanding of instructions, follow-up care. 13:29 Patient left the ED. aa5 Signatures: Dispatcher [employer] EDMS Siomara Jewell, HOME DEPOT REP-C HOME DEPOT REP-Csnw Mckayla Voss, RN RN aa5 Nialm Rosales [facility] Corrections: (The following items were deleted from the chart) 10:59 10:50 BP 124 / 64; Pulse 66bpm; Resp 16bpm; Spontaneous; Pulse Ox 100% RA; Pain 8/10; aa5 aa5
[2018-02-12 13:32] VITALS: TEMP 97.6
[2018-02-12 13:35] VITALS: BP 142/70; O2SAT 99
== END 2018-02-12 13:29 | disposition home or self-care (01) ==
LOC: ER 10:44
DX: S80.11XA Contusion of right lower leg, initial encounter (principal); I11.0 Hypertensive heart disease with heart failure; I50.9 Heart failure, unspecified; E03.9 Hypothyroidism, unspecified; W01.190A Fall on same level from slipping, tripping and stumbling with subsequent striking against furniture, initial encounter; Y93.89 Activity, other specified; Y92.091 Bathroom in other non-institutional residence as the place of occurrence of the external cause; Y99.9 Unspecified external cause status; Z88.6 Allergy status to analgesic agent
CPT/HCPCS: 99284